=== PATIENT | male | born 1990 | race Caucasian/White ===

== ENCOUNTER → 2018-07-05 | Outpatient (CLI) | payer BC, OTHER | LOC: HYPER 06:56 | DX: T81.89XA Other complications of procedures, not elsewhere classified, initial encounter (principal); L05.91 Pilonidal cyst without abscess; E78.5 Hyperlipidemia, unspecified; E66.9 Obesity, unspecified; E07.89 Other specified disorders of thyroid; H91.90 Unspecified hearing loss, unspecified ear; Y92.89 Other specified places as the place of occurrence of the external cause; Y83.8 Other surgical procedures as the cause of abnormal reaction of the patient, or of later complication, without mention of misadventure at the time of the procedure ==

== ENCOUNTER → 2018-07-13 | Outpatient (CLI) | payer BC, OTHER | LOC: HYPER 07:07 | DX: T81.89XD Other complications of procedures, not elsewhere classified, subsequent encounter (principal); L05.91 Pilonidal cyst without abscess; E78.5 Hyperlipidemia, unspecified; E66.9 Obesity, unspecified; E07.89 Other specified disorders of thyroid; H91.90 Unspecified hearing loss, unspecified ear; Y83.8 Other surgical procedures as the cause of abnormal reaction of the patient, or of later complication, without mention of misadventure at the time of the procedure ==

== ENCOUNTER → 2018-07-27 | Outpatient (CLI) | payer BC, OTHER | LOC: HYPER 06:46 | DX: T81.89XD Other complications of procedures, not elsewhere classified, subsequent encounter (principal); L98.492 Non-pressure chronic ulcer of skin of other sites with fat layer exposed; L05.91 Pilonidal cyst without abscess; E78.5 Hyperlipidemia, unspecified; E66.9 Obesity, unspecified; E07.89 Other specified disorders of thyroid; H91.90 Unspecified hearing loss, unspecified ear; Y83.8 Other surgical procedures as the cause of abnormal reaction of the patient, or of later complication, without mention of misadventure at the time of the procedure ==

== ENCOUNTER → 2018-08-10 | Outpatient (CLI) | payer BC, OTHER | LOC: HYPER 07:00 | DX: T81.89XD Other complications of procedures, not elsewhere classified, subsequent encounter (principal); L05.91 Pilonidal cyst without abscess; L98.492 Non-pressure chronic ulcer of skin of other sites with fat layer exposed; E78.5 Hyperlipidemia, unspecified; E66.9 Obesity, unspecified; E07.89 Other specified disorders of thyroid; H91.90 Unspecified hearing loss, unspecified ear; Y83.8 Other surgical procedures as the cause of abnormal reaction of the patient, or of later complication, without mention of misadventure at the time of the procedure ==

== ENCOUNTER → 2018-08-23 | Outpatient (CLI) | payer BC, OTHER | LOC: HYPER 06:50 | DX: T81.89XD Other complications of procedures, not elsewhere classified, subsequent encounter (principal); L05.91 Pilonidal cyst without abscess; L98.492 Non-pressure chronic ulcer of skin of other sites with fat layer exposed; E78.5 Hyperlipidemia, unspecified; E66.9 Obesity, unspecified; Z68.32 Body mass index [BMI] 32.0-32.9, adult; Y83.8 Other surgical procedures as the cause of abnormal reaction of the patient, or of later complication, without mention of misadventure at the time of the procedure ==

== ENCOUNTER → 2018-09-05 | Outpatient (CLI) | payer BC, OTHER | LOC: HYPER 06:57 | DX: T81.89XD Other complications of procedures, not elsewhere classified, subsequent encounter (principal); L05.91 Pilonidal cyst without abscess; L98.492 Non-pressure chronic ulcer of skin of other sites with fat layer exposed; E78.5 Hyperlipidemia, unspecified; E66.9 Obesity, unspecified; Z68.32 Body mass index [BMI] 32.0-32.9, adult; Y83.8 Other surgical procedures as the cause of abnormal reaction of the patient, or of later complication, without mention of misadventure at the time of the procedure ==

== ENCOUNTER → 2018-10-02 | Outpatient (CLI) | payer BC, OTHER | LOC: HYPER 09-27 07:41 | DX: T81.89XD Other complications of procedures, not elsewhere classified, subsequent encounter (principal); L05.91 Pilonidal cyst without abscess; L98.492 Non-pressure chronic ulcer of skin of other sites with fat layer exposed; E78.5 Hyperlipidemia, unspecified; E66.9 Obesity, unspecified; E07.89 Other specified disorders of thyroid; H91.90 Unspecified hearing loss, unspecified ear; Z68.32 Body mass index [BMI] 32.0-32.9, adult; Y83.8 Other surgical procedures as the cause of abnormal reaction of the patient, or of later complication, without mention of misadventure at the time of the procedure ==

== ENCOUNTER → 2018-10-26 | Outpatient (CLI) | payer BC, OTHER | LOC: HYPER 06:55 | DX: T81.89XD Other complications of procedures, not elsewhere classified, subsequent encounter (principal); L05.91 Pilonidal cyst without abscess; L98.492 Non-pressure chronic ulcer of skin of other sites with fat layer exposed; E78.5 Hyperlipidemia, unspecified; E66.9 Obesity, unspecified; Z68.32 Body mass index [BMI] 32.0-32.9, adult; Y83.8 Other surgical procedures as the cause of abnormal reaction of the patient, or of later complication, without mention of misadventure at the time of the procedure ==

== ENCOUNTER → 2018-11-15 | Outpatient (CLI) | payer BC, OTHER | LOC: HYPER 06:55 | DX: T81.89XD Other complications of procedures, not elsewhere classified, subsequent encounter (principal); L05.91 Pilonidal cyst without abscess; L98.492 Non-pressure chronic ulcer of skin of other sites with fat layer exposed; E78.5 Hyperlipidemia, unspecified; E66.9 Obesity, unspecified; E07.89 Other specified disorders of thyroid; H91.90 Unspecified hearing loss, unspecified ear; Y83.8 Other surgical procedures as the cause of abnormal reaction of the patient, or of later complication, without mention of misadventure at the time of the procedure ==

== ENCOUNTER → 2018-12-06 | Outpatient (CLI) | payer BC, OTHER | LOC: HYPER 06:53 | DX: T81.89XD Other complications of procedures, not elsewhere classified, subsequent encounter (principal); L98.492 Non-pressure chronic ulcer of skin of other sites with fat layer exposed; L05.91 Pilonidal cyst without abscess; E78.5 Hyperlipidemia, unspecified; E66.9 Obesity, unspecified; E07.89 Other specified disorders of thyroid; H91.90 Unspecified hearing loss, unspecified ear; Y83.8 Other surgical procedures as the cause of abnormal reaction of the patient, or of later complication, without mention of misadventure at the time of the procedure ==

== ENCOUNTER → 2019-01-17 | Outpatient (CLI) | payer BC, OTHER | LOC: HYPER 01-03 11:22 | DX: T81.89XD Other complications of procedures, not elsewhere classified, subsequent encounter (principal); L98.492 Non-pressure chronic ulcer of skin of other sites with fat layer exposed; L05.91 Pilonidal cyst without abscess; E78.5 Hyperlipidemia, unspecified; E66.9 Obesity, unspecified; H91.90 Unspecified hearing loss, unspecified ear; Z68.32 Body mass index [BMI] 32.0-32.9, adult; Y83.8 Other surgical procedures as the cause of abnormal reaction of the patient, or of later complication, without mention of misadventure at the time of the procedure ==

== ENCOUNTER → 2019-02-01 | Outpatient (CLI) | payer BC, OTHER | LOC: HYPER 09:28 | DX: T81.89XD Other complications of procedures, not elsewhere classified, subsequent encounter (principal); L98.492 Non-pressure chronic ulcer of skin of other sites with fat layer exposed; L05.91 Pilonidal cyst without abscess; E78.5 Hyperlipidemia, unspecified; E66.9 Obesity, unspecified; E07.89 Other specified disorders of thyroid; H91.90 Unspecified hearing loss, unspecified ear; Y83.8 Other surgical procedures as the cause of abnormal reaction of the patient, or of later complication, without mention of misadventure at the time of the procedure ==

== ENCOUNTER → 2019-02-19 | Outpatient (CLI) | payer BC, OTHER | LOC: HYPER 09:05 | DX: T81.89XD Other complications of procedures, not elsewhere classified, subsequent encounter (principal); L98.492 Non-pressure chronic ulcer of skin of other sites with fat layer exposed; L05.91 Pilonidal cyst without abscess; E78.5 Hyperlipidemia, unspecified; E66.9 Obesity, unspecified; E07.89 Other specified disorders of thyroid; H91.90 Unspecified hearing loss, unspecified ear; Y83.8 Other surgical procedures as the cause of abnormal reaction of the patient, or of later complication, without mention of misadventure at the time of the procedure ==

== ENCOUNTER → 2019-03-26 | Outpatient (CLI) | payer BC, OTHER | LOC: HYPER 15:47 | DX: T81.89XD Other complications of procedures, not elsewhere classified, subsequent encounter (principal); L98.492 Non-pressure chronic ulcer of skin of other sites with fat layer exposed; L05.91 Pilonidal cyst without abscess; E78.5 Hyperlipidemia, unspecified; E66.9 Obesity, unspecified; E07.89 Other specified disorders of thyroid; H91.90 Unspecified hearing loss, unspecified ear; Z68.32 Body mass index [BMI] 32.0-32.9, adult; Y83.8 Other surgical procedures as the cause of abnormal reaction of the patient, or of later complication, without mention of misadventure at the time of the procedure ==

== ENCOUNTER → 2019-04-18 | Outpatient (CLI) | payer BC | LOC: HYPER 04-16 11:47 | DX: T81.89XD Other complications of procedures, not elsewhere classified, subsequent encounter (principal); L98.492 Non-pressure chronic ulcer of skin of other sites with fat layer exposed; L05.91 Pilonidal cyst without abscess; E78.5 Hyperlipidemia, unspecified; E07.89 Other specified disorders of thyroid; E66.01 Morbid (severe) obesity due to excess calories; H91.90 Unspecified hearing loss, unspecified ear; Z68.32 Body mass index [BMI] 32.0-32.9, adult; Y83.8 Other surgical procedures as the cause of abnormal reaction of the patient, or of later complication, without mention of misadventure at the time of the procedure ==